=== PATIENT | female | born 1975 | race Caucasian/White ===

== ENCOUNTER 2017-12-08 22:07 | Emergency (ER) | payer SELFPAY ==
[~2017-12-08] VITALS: Ht 160 cm; Wt 51.4 kg
[2017-12-08 22:11] VITALS: BP 132/81; PULSE 114; RESP 20; TEMP 98; O2SAT 96
[2017-12-08] MEDS ORDERED: METH10TA PO (22:26)
--- NOTE | 2017-12-08 22:26 | PD ---
HPI Chief Complaint: OD/ Ingestion Time Seen by Provider: 22:17 Travel History International Travel<30 days: No Contact w/Intl Traveler<30days: No Traveled to known affect area: No History of Present Illness HPI 42-year-old female brought in by PD under [employer] after an unintentional heroin overdose. Patient has history of opiate addiction and is currently seen at a methadone clinic where her dose is slowly being lowered. Today she had a relapse and injected heroin into her arm. She was found by coworkers in her bathroom unresponsive. She was provided 0.4 mg of Narcan by EMS with significant improvement in mental status. Upon arrival the patient is tearful and feels embarrassed. She denies any physical complaints. She denies using any other drugs. She denies suicidal or homicidal ideation. [facility] Past Medical History Anxiety: Yes Social History Alcohol Use: Yes Tobacco Use: Yes Substance Use: No Allergies-Medications (Allergen,Severity, Reaction): Coded Allergies: No Known Allergies (Unverified , 05/01/16) Reported Meds & Prescriptions Reported Meds & Active Scripts Active No Active Prescriptions or Reported Medications Review of Systems Except as stated in HPI: all other systems reviewed are Neg Physical Exam Narrative GENERAL: Well-developed, thin, awake, alert, tearful, no apparent distress. SKIN: Focused skin assessment warm/dry. Track puente on right upper extremity. No signs of cellulitis. HEAD: Atraumatic. Normocephalic. EYES: Pupils equal and round. No scleral icterus. No injection or drainage. ENT: No nasal bleeding or discharge. Mucous membranes pink and moist. NECK: Trachea midline. No JVD. CARDIOVASCULAR: Regular rate and rhythm. No murmur appreciated. RESPIRATORY: No accessory muscle use. Clear to auscultation. Breath sounds equal bilaterally. GASTROINTESTINAL: Abdomen soft, non-tender, nondistended. MUSCULOSKELETAL: No obvious deformities. No clubbing. No cyanosis. No edema. NEUROLOGICAL: Awake and alert. No obvious cranial nerve deficits. Motor grossly within normal limits. Normal speech. PSYCHIATRIC: Appropriate mood and affect; insight and judgment normal. Data Data Last Documented VS Vital Signs Date Time Temp Pulse Resp B/P (MAP) Pulse Ox O2 Delivery O2 Flow Rate FiO2 12/08/17 22:11 98.0 114 20 132/81 (98) 96 Orders Orders Sodium Chlor 0.9% 1000 Ml Inj (Ns 1000 M (12/08/17 22:30) MDM Medical Decision Making Medical Screen Exam Complete: Yes Emergency Medical Condition: Yes Differential Diagnosis Unintentional heroin overdose Narrative Course Patient had an unintentional heroin overdose. Her mental status significantly improved with Narcan. She denies suicidal or homicidal ideation. She will be observed in the emergency department for a couple of hours and if her mental status remains normal, she will be discharged home. Diagnosis Primary Impression: Heroin overdose Qualified Codes: T40.1X1A - Poisoning by heroin, accidental (unintentional), initial encounter Scripts No Active Prescriptions or Reported Meds Disposition: 01 DISCHARGE HOME Condition: Stable Miller Moore MD Dec 08, 2017 22:26
[2017-12-08] MEDS ORDERED: SODIUM CHLOR 0.9% 1000 ML INJ 1,000 ML IV ONE (22:30)
[2017-12-09 00:06] VITALS: BP 107/66; PULSE 89; RESP 18; O2SAT 98
== END 2017-12-09 01:16 | disposition home or self-care (01) ==
LOC: NEPC 22:07
DX: T40.1X1A Poisoning by heroin, accidental (unintentional), initial encounter (principal); F41.9 Anxiety disorder, unspecified; Z72.0 Tobacco use
CPT/HCPCS: 99281